=== PATIENT | male | born 1985 | race Caucasian/White ===

== ENCOUNTER 2021-02-20 11:46 | Emergency (ER) | payer OTHER ==
[2021-02-20 11:55] VITALS: TEMP 98
--- NOTE | 2021-02-20 12:05 | ED ---
Neuro HPI - General Source: patient, RN notes reviewed Mode of arrival: ambulatory Limitations: no limitations - History of Present Illness Is the patient presenting with stroke symptoms?: No <Pradip Kendrick - Last Filed: 02/20/21 12:03> <Pa Marion - Last Filed: 02/20/21 13:43> - General Chief Complaint: Neuro Symptoms/Deficit Stated Complaint: Right side facial weakness - History of Present Illness Initial Comments: Patient is a 35-year-old male that presents emergency department complaining of right-sided facial paralysis that started approximately last night. He has no other complaints or issues denied any chest pain extremity weakness or slurring words. (Pradip Kendrick) - Related Data Home Medications: Previous Rx's Medication Instructions Recorded Artificial Tears Ointment 1 gm OPHTHALMIC HS #1 oint...g. 02/20/21 [Lubrifresh Pm Ointment] Artificial Tears-Hypromellose 1 drops BOTH EYES TID #10 ml 02/20/21 [Artificial Tear Drops] predniSONE [Deltasone] 60 mg PO DAILY 7 Days #21 tab 02/20/21 valACYclovir HCL [Valtrex] 1,000 mg PO Q8HR 7 Days #21 tab 02/20/21 Allergies/Adverse Reactions: Allergies Allergy/AdvReac Type Severity Reaction Status Date / Time cantaloupe Allergy Rash/Hives Verified 02/20/21 11:55 Review of Systems ROS Other: All systems not noted in ROS Statement are negative. <Pradip Kendrick - Last Filed: 02/20/21 12:03> ROS Other: All systems not noted in ROS Statement are negative. <Pa Marion - Last Filed: 02/20/21 13:43> ROS Statement: Those systems with pertinent positive or pertinent negative responses have been documented in the HPI. General Exam Limitations: no limitations General appearance: alert, in no apparent distress Head exam: Present: atraumatic, normocephalic, normal inspection Eye exam: Present: normal appearance, PERRL, EOMI. Absent: scleral icterus, conjunctival injection, periorbital swelling ENT exam: Present: normal exam, mucous membranes moist Neck exam: Present: normal inspection. Absent: tenderness, meningismus, lymphadenopathy Respiratory exam: Present: normal lung sounds bilaterally. Absent: respiratory distress, wheezes, rales, rhonchi, stridor Cardiovascular Exam: Present: regular rate, normal rhythm, normal heart sounds. Absent: systolic murmur, diastolic murmur, rubs, gallop, clicks GI/Abdominal exam: Present: soft, normal bowel sounds. Absent: distended, tenderness, guarding, rebound, rigid Extremities exam: Present: normal inspection, full ROM, normal capillary refill. Absent: tenderness, pedal edema, joint swelling, calf tenderness Neurological exam: Present: alert, oriented X3, CN II-XII intact, other (When inserted the spinal patient's right side of his face did not move, decreased eyebrow raise and forehead wrinkle. Patient denied any pain) <Pradip Kendrick - Last Filed: 02/20/21 12:03> Stroke MDM - Lab Data Result diagrams: 02/20/21 12:00 02/20/21 12:00 <Pa Marion - Last Filed: 02/20/21 13:43> - Lab Data Lab Results 02/20/21 02/20/21 02/20/21 Range/Units 12:00 12:00 12:00 WBC 8.5 (3.8-10.6) k/uL RBC 5.53 (4.30-5.90) m/uL Hgb 17.3 (13.0-17.5) gm/dL Hct 49.6 (39.0-53.0) % MCV 89.6 (80.0-100.0) fL MCH 31.3 (25.0-35.0) pg MCHC 34.9 (31.0-37.0) g/dL RDW 12.8 (11.5-15.5) % Plt Count 266 (150-450) k/uL MPV 7.5 Neutrophils % 53 % Lymphocytes % 31 % Monocytes % 8 % Eosinophils % 5 % Basophils % 1 % Neutrophils # 4.5 (1.3-7.7) k/uL Lymphocytes # 2.6 (1.0-4.8) k/uL Monocytes # 0.7 (0-1.0) k/uL Eosinophils # 0.4 (0-0.7) k/uL Basophils # 0.1 (0-0.2) k/uL Sodium 140 (137-145) mmol/L Potassium 4.2 (3.5-5.1) mmol/L Chloride 105 (98-107) mmol/L Carbon Dioxide 28 (22-30) mmol/L Anion Gap 7 mmol/L BUN 11 (9-20) mg/dL Creatinine 1.12 (0.66-1.25) mg/dL Est GFR (CKD-EPI)AfAm >90 (>60 ml/min/1.73 sqM) Est GFR (CKD-EPI)NonAf 86 (>60 ml/min/1.73 sqM) Glucose 114 H (74-99) mg/dL Calcium 9.9 (8.4-10.2) mg/dL Magnesium 2.0 (1.6-2.3) mg/dL Total Bilirubin 1.3 (0.2-1.3) mg/dL AST 46 (17-59) U/L ALT 66 H (4-49) U/L Alkaline Phosphatase 64 (38-126) U/L Troponin I <0.012 (0.000-0.034) ng/mL Total Protein 7.2 (6.3-8.2) g/dL Albumin 4.5 (3.5-5.0) g/dL - Medical Decision Making 35-year-old male presenting with right facial numbness and weakness which began yesterday evening. Patient deniesdifficulties, denies any weakness. No history of CVA or TIA. Patient does have chronic issues with his right ear states that he had some right ear pain as well. On exam patient is alert and oriented, he has right facial paralysis including the forehead, inability to elevate the right eyebrow, inability to tightly close his right eye. 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 He has no limb weakness. Forehead is not spared. Patient has normal electrolytes, normal CBC, negative chest x-ray, CT negative for intracranial hemorrhage or mass effect. Patient will be started on prednisone and valacyclovir as well as Augmentin considering he has a right ear effusion and ear pain. (Pa Marion) Past Medical History Past Medical History: No Reported History History of Any Multi-Drug Resistant Organisms: None Reported Past Surgical History: Appendectomy Additional Past Surgical History / Comment(s): tubes in ears. Past Psychological History: No Psychological Hx Reported Smoking Status: Current every day smoker Past Alcohol Use History: Rare Past Drug Use History: None Reported <Pradip Kendrick - Last Filed: 02/20/21 12:03> Course Vital Signs 02/20/21 11:52 Temperature 98 F Pulse Rate 95 Respiratory 18 Rate Blood Pressure 146/88 O2 Sat by Pulse 100 Oximetry Disposition <Pradip Kendrick - Last Filed: 02/20/21 12:03> Is patient prescribed a controlled substance at d/c from ED?: No Time of Disposition: 13:42 <Pa Marion - Last Filed: 02/20/21 13:43> Clinical Impression: Palsy, Stephens's, Otitis media Disposition: HOME SELF-CARE Condition: Good Instructions (If sedation given, give patient instructions): Serous Otitis Media (ED) Additional Instructions: Prostate medication as prescribed, please use Tylenol ointment at bedtime. Please tap your eye shut at bedtime. Prescriptions: Artificial Tears-Hypromellose [Artificial Tear Drops] 1 drops BOTH EYES TID #10 ml predniSONE [Deltasone] 60 mg PO DAILY 7 Days #21 tab Artificial Tears Ointment [Lubrifresh Pm Ointment] 1 gm OPHTHALMIC HS #1 oint...g. valACYclovir HCL [Valtrex] 1,000 mg PO Q8HR 7 Days #21 tab Referrals: None,Stated [Primary Care Provider] - 1-2 days Yimi Montero MD [STAFF PHYSICIAN] - 1-2 days Rupert Amezquita MD [STAFF PHYSICIAN] - 1-2 days
--- NOTE | 2021-02-20 12:20 | XR ---
EXAMINATION TYPE: XR chest 2V DATE OF EXAM: 02/20/2021 COMPARISON: None HISTORY: 35-year-old male with chest pain TECHNIQUE: PA and lateral views FINDINGS: The cardiomediastinal silhouette, aorta, and pulmonary vasculature are within normal limits. There is strandy opacity at the cardiac apex suggests atelectasis. Otherwise, lungs and pleural spaces are cl ear. IMPRESSION: Some strandy atelectasis at the inferior lingula. If concern for an early developing infiltrate, foll ow up can be performed. Otherwise, no acute process seen.
[2021-02-20 12:24] LABS: Basophils # (A) 0.1 k/uL (0-0.2); Basophils % (A) 1 %; Eosinophils # (A) 0.4 k/uL (0-0.7); Eosinophils % (A) 5 %; HCT 49.6 % (39.0-53.0); HGB 17.3 gm/dL (13.0-17.5); Lymphocytes # (A) 2.6 k/uL (1.0-4.8); Lymphocytes % (A) 31 %; MCH 31.3 pg (25.0-35.0); MCHC 34.9 g/dL (31.0-37.0); MCV 89.6 fL (80.0-100.0); Mean Platelet Volume 7.5; Monocytes # (A) 0.7 k/uL (0-1.0); Monocytes % (A) 8 %; Neutrophils # (A) 4.5 k/uL (1.3-7.7); Neutrophils % (A) 53 %; Platelet Count 266 k/uL (150-450); RBC 5.53 m/uL (4.30-5.90); RDW 12.8 % (11.5-15.5); WBC 8.5 k/uL (3.8-10.6)
[2021-02-20 12:39] LABS: ALT 66 U/L (4-49); AST 46 U/L (17-59); African American GFR (CKD) >90 (>60 ml/min/1.73 sqM); Albumin 4.5 g/dL (3.5-5.0); Alkaline Phosphatase 64 U/L (38-126); Anion Gap 7 mmol/L; Blood Urea Nitrogen 11 mg/dL (9-20); Calcium 9.9 mg/dL (8.4-10.2); Carbon Dioxide 28 mmol/L (22-30); Chloride 105 mmol/L (98-107); Glucose 114 mg/dL (74-99); Non-African American GFR(CKD) 86 (>60 ml/min/1.73 sqM); Potassium 4.2 mmol/L (3.5-5.1); Sodium 140 mmol/L (137-145); Total Bilirubin 1.3 mg/dL (0.2-1.3); Total Protein 7.2 g/dL (6.3-8.2)
--- NOTE | 2021-02-20 14:14 | CT ---
EXAMINATION TYPE: CT brain wo con DATE OF EXAM: 02/20/2021 COMPARISON: None HISTORY: Facial weakness Unenhanced CT of the brain was performed. The ventricles, basal cisterns and sulci overlying the cerebral convexities demonstrate a normal appe arance. There is no evidence for intracranial hemorrhage or sulcal effacement. No mass effects are seen. Osseous calvarium is intact. If symptoms persist consider MRI as clinically warranted. IMPRESSION: 1. No acute intracranial process is seen at this time.
[2021-02-20 14:32] VITALS: BP 142/83; PULSE 90; RESP 16
== END 2021-02-20 14:33 | disposition home or self-care (01) ==
LOC: EC 11:46
DX: G51.0 Bell's palsy (principal); H66.90 Otitis media, unspecified, unspecified ear; F17.200 Nicotine dependence, unspecified, uncomplicated
CPT/HCPCS: 36415; 70450; 71046; 80053; 83735; 84484; 85025; 93005; 99285

== ENCOUNTER 2024-10-04 02:25 | Emergency (ER) | payer BC, OTHER ==
[2024-10-04 03:13] VITALS: BP 163/105; PULSE 99; RESP 18; TEMP 98.3
--- NOTE | 2024-10-04 03:29 | ED ---
ENT HPI - General Chief complaint: Dental/Oral Stated complaint: Dental pain Time Seen by Provider: 10/04/24 03:27 Source: patient, RN notes reviewed Mode of arrival: ambulatory - History of Present Illness Initial comments: 39-year-old male presenting to the ER with chief complaint of dental pain x 1 day. States he had an injury 1 year ago where he fractured 2 teeth on the left side. States he has had no issues, however reports over the past day he is having pain in the left upper molar at site of cracked tooth. Denies fevers, difficulty breathing or swallowing. States he has appointment with dentist tomorrow. - Related Data Previous Rx's Medication Instructions Recorded Amoxicillin 500 mg PO Q12HR #20 cap 02/20/21 Artificial Tears Ointment 1 gm OPHTHALMIC HS #1 oint...g. 02/20/21 [Lubrifresh Pm Ointment] Artificial Tears-Hypromellose 1 drops BOTH EYES TID #10 ml 02/20/21 [Artificial Tear Drops] predniSONE [Deltasone] 60 mg PO DAILY 7 Days #21 tab 02/20/21 valACYclovir HCL [Valtrex] 1,000 mg PO Q8HR 7 Days #21 tab 02/20/21 Amoxic-Pot Clav 875-125Mg 1 tab PO Q12HR 10 Days #20 tab 10/04/24 [Augmentin 875-125] Ketorolac [Toradol] 10 mg PO Q8HR #15 tab 10/04/24 Allergies Allergy/AdvReac Type Severity Reaction Status Date / Time cantaloupe Allergy Rash/Hives Verified 10/04/24 03:07 Review of Systems ROS Statement: Those systems with pertinent positive or pertinent negative responses have been documented in the HPI. ROS Other: All systems not noted in ROS Statement are negative. Past Medical History Past Medical History: No Reported History History of Any Multi-Drug Resistant Organisms: None Reported Past Surgical History: Appendectomy Additional Past Surgical History / Comment(s): tubes in ears. Past Psychological History: No Psychological Hx Reported Smoking Status: Current every day smoker Past Alcohol Use History: Rare Past Drug Use History: None Reported General Exam General appearance: alert, in no apparent distress Head exam: Present: atraumatic, normocephalic, normal inspection Eye exam: Present: normal appearance, PERRL, EOMI. Absent: scleral icterus, conjunctival injection, periorbital swelling ENT exam: Present: normal exam, mucous membranes moist, other (Fracture of left upper molar with no surrounding erythema or fluctuant masses, tender to palpation) Neck exam: Present: normal inspection. Absent: tenderness, meningismus, lymphadenopathy Respiratory exam: Present: normal lung sounds bilaterally. Absent: respiratory distress, wheezes, rales, rhonchi, stridor Cardiovascular Exam: Present: regular rate, normal rhythm, normal heart sounds. Absent: systolic murmur, diastolic murmur, rubs, gallop, clicks Neurological exam: Present: alert, oriented X3 Psychiatric exam: Present: normal affect, normal mood Skin exam: Present: warm, dry, intact, normal color. Absent: rash Course Vital Signs 10/04/24 03:08 Temperature 98.3 F Pulse Rate 99 Respiratory 18 Rate Blood Pressure 163/105 O2 Sat by Pulse 98 Oximetry Medical Decision Making - Medical Decision Making Was pt. sent in by a medical professional or institution (, PA, INDUSTRIAL MANUFACTURING TECHNICIAN, urgent care, hospital, or [facility]...) When possible be specific @ -No Did you speak to anyone other than the patient for history (EMS, parent, family, police, friend...)? What history was obtained from this source @ -No Did you review nursing and triage notes (agree or disagree)? Why? @ -I reviewed and agree with nursing and triage notes Were old charts reviewed (outside hosp., previous admission, EMS record, old EKG, old radiological studies, urgent care reports/EKG's, [facility] records)? Report findings @ -No old charts were reviewed Differential Diagnosis (chest pain, altered mental status, abdominal pain women, abdominal pain men, vaginal bleeding, weakness, fever, dyspnea, syncope, headache, dizziness, GI bleed, back pain, seizure, CVA, palpatations, mental health, musculoskeletal)? @ -Dental infection, gingivitis, dental abscess, Juliano's angina, dental caries EKG interpreted by me (3pts min.). @ -None X-rays interpreted by me (1pt min.). @ -None done CT interpreted by me (1pt min.). @ -None done U/S interpreted by me (1pt. min.). @ -None done What testing was considered but not performed or refused? (CT, X-rays, U/S, labs)? Why? @ -None What meds were considered but not given or refused? Why? @ -None Did you discuss the management of the patient with other professionals (jennifer fitzgerald iSamaraeSamara Tran, PA, INDUSTRIAL MANUFACTURING TECHNICIAN, lab, RT, psych nurse, social services coordinator, founder, teacher, landing signal officer, case monitor)? Give summary @ -No Was smoking cessation discussed for >3mins.? @ -No Was critical care preformed (if so, how long)? @ -No Were there social determinants of health that impacted care today? How? (Homelessness, low income, unemployed, alcoholism, drug addiction, transportation, low edu. Level, literacy, decrease access to med. care, alf, rehab)? @ -No Was there de-escalation of care discussed even if they declined (Discuss DNR or withdrawal of care, Hospice)? DNR status @ -No What co-morbidities impacted this encounter? (DM, HTN, Smoking, COPD, CAD, Cancer, CVA, ARF, Chemo, Hep., AIDS, mental health diagnosis, sleep apnea, morbid obesity)? @ -None Was patient admitted / discharged? Hospital course, mention meds given and route, prescriptions, significant lab abnormalities, going to OR and other pertinent info. @ -Discharge. This is a 39-year-old male presenting with dental pain x 1 day. No red flag symptoms. Patient is afebrile, nontachycardic, hypertensive at 163/105. No sign of fluctuant masses or abscesses on examination. Patient was provided with analgesics and first dose of antibiotic. Prescribed Augmentin and Toradol to pharmacy. Patient has appointment with dentist tomorrow. Supportive care discussed as well as return precautions. Patient is agreeable t o plan. Case was discussed with my ED attending Dr. Soto. Patient discharged in stable condition. Undiagnosed new problem with uncertain prognosis? @ -No Drug Therapy requiring intensive monitoring for toxicity (Heparin, Nitro, Insulin, Cardizem)? @ -No Were any procedures done? @ -No Diagnosis/symptom? @ -Dental infection Acute, or Chronic, or Acute on Chronic? @ -Acute Uncomplicated (without systemic symptoms) or Complicated (systemic symptoms)? @ -Uncomplicated Side effects of treatment? @ -No Exacerbation, Progression, or Severe Exacerbation? @ -No Poses a threat to life or bodily function? How? (Chest pain, [place], [place], pneumonia, PE, COPD, DKA, ARF, appy, cholecystitis, CVA, Diverticulitis, Homicidal, Suicidal, threat to staff... and all critical care pts) @ -No Disposition Clinical Impression: Dental infection Disposition: HOME SELF-CARE Condition: Stable Instructions (If sedation given, give patient instructions): Toothache (ED) Additional Instructions: Take Augmentin twice daily for 10 days. Take Toradol as needed for pain. Foll ow-up for dentist appointment on Saturday. Please return to the Emergency Department if symptoms worsen or any other concerns. Prescriptions: Amoxic-Pot Clav 875-125Mg [Augmentin 875-125] 1 tab PO Q12HR 10 Days #20 tab Ketorolac [Toradol] 10 mg PO Q8HR #15 tab Is patient prescribed a controlled substance at d/c from ED?: No Referrals: None,Stated [Primary Care Provider] - 1-2 days Time of Disposition: 03:28
[2024-10-04] MEDS: KETOROLAC 15 MG/ML 1 ML VIAL IM STA (04:02)
[2024-10-04] MEDS: AMOXIC-POT CLAV 875-125MG 1 EACH TAB PO STA (04:06)
== END 2024-10-04 04:10 | disposition home or self-care (01) ==
LOC: EC 02:25
DX: K04.7 Periapical abscess without sinus (principal); F17.200 Nicotine dependence, unspecified, uncomplicated; Z88.8 Allergy status to other drugs, medicaments and biological substances
CPT/HCPCS: 99283; 96372; J1885